=== PATIENT | female | born 1990 | race African-American/Black ===

== ENCOUNTER 2021-04-19 07:19 | Inpatient (IN) ==
[2021-04-19] MEDS: LACTATED RINGERS 1,000 ML IV SCH ×2 (08:35→15:13)
[2021-04-19] MEDS ORDERED: MEPERIDINE 50 MG/1 ML VIAL IV PRN (08:56)
[2021-04-19] MEDS ORDERED: OXYTOCIN/LR 20 UNIT/1,000 ML BAG IV SCH (09:00)
[2021-04-19 09:18] LABS: Basophils % 0.5 % (0.0-0.8); Eosinophils # 0.1 10*3/uL (0.0-0.87); Eosinophils % 0.6 % (0.00-10.9); Hematocrit 32.9 VOL% (35.7-47.0); Hemoglobin 10.2 GM/DL (12.0-16.0); Immature Granulocytes % 0.4 %; Immature Granulocytes Absolute 0.03 #; Lymphocytes # 1.9 10*3/uL (1.4-4.0); Lymphocytes % 22.4 % (21.3-54.2); Mean Corpuscular Volume 84.8 FL (87-102); Mean Platelet Volume 12.1 FL (9.6-12.0); Monocytes % 7.2 % (1.7-12.7); Neutrophils % 68.9 % (38.7-73.9); Platelet Count 266 T/CUMM (130-400); Red Blood Count 3.88 MC/CUMM (3.8-5.5); Red Cell Distribution Width 16.1 % (9.3-17.3); White Blood Count 8.3 T/CUMM (4-12)
[2021-04-19] MEDS: ONDANSETRON 4 MG/2 ML VIAL IV PRN ×2 (09:31→16:36)
[2021-04-19] MEDS ORDERED: CITRIC ACID/SODIUM CITRATE 30 ML UDCUP PO ONE (09:39)
[2021-04-19] MEDS ORDERED: FAMOTIDINE 20 MG/2 ML VIAL IV ONE (09:39)
[2021-04-19] MEDS ORDERED: LACTATED RINGERS 1,000 ML IV ONE (09:39)
[2021-04-19] MEDS ORDERED: ePHEDrine 50 MG/ML VIAL IV PRN (09:39)
[2021-04-19] MEDS ORDERED: NALOXONE 0.4 MG/ML VIAL IV PRN (09:39)
[2021-04-19] MEDS ORDERED: fentaNYL 2 MCG/ROPIV 0.2% EPID 100 ML EPIDURAL SCH (10:00)
[2021-04-19 11:19] LABS: RPR Confirm - Less than 1 yr REACTIVE (Nonreactive)
[2021-04-19 13:00] LABS: Bilirubin,Urine Negative (Negative); Blood, Urine Negative (Negative); Glucose,Urine (UA) Negative (Negative); Ketones,Urine 5 mg/dL (Negative); Nitrite,Urine Negative (Negative); Protein,Urine Negative; RBC,Urine <1 /HPF (0-4); Squamous Epithelial Cell,Urine Occasional /HPF (0-10); Urine Appearance CLEAR (Clear); Urine Color Straw (Yellow); Urine Specific Gravity 1.003 (1.001-1.035); Urine Urobilinogen < 2.0 EU/DL (0.2-1.0)
[2021-04-19] MEDS ORDERED: miSOPROStoL 200 MCG TABLET ONE (14:31)
[2021-04-19] MEDS ORDERED: METHYLERGONOVINE 0.2 MG/1 ML AMP ONE (14:32)
[2021-04-19] MEDS ORDERED: CARBOPROST TROMETHAMINE 250 MCG/ML AMP IM ONE (14:33)
[2021-04-19 16:06] LABS: Cord Venous Blood PO2 29.8 MMHG
[2021-04-19] MEDS ORDERED: MEASLES/MUMPS/RUBELLA VACCINE 0.5 ML VIAL SUBCUT ONE (16:34)
[2021-04-19] MEDS ORDERED: HYDROCORTISONE 2.5% RECTAL CREAM 30 GM TUBE TOP PRN (16:34)
[2021-04-19] MEDS ORDERED: LANOLIN 50% CREAM 0.3 OZ TUBE TOP PRN (16:34)
[2021-04-19] MEDS ORDERED: BISACODYL 10 MG SUPP RECTAL PRN (16:34)
[2021-04-19] MEDS ORDERED: BENZOCAINE 20%/MENTHOL 0.5% SPRAY 56 GM CAN TOP PRN (16:34)
[2021-04-19] MEDS ORDERED: ONDANSETRON 4 MG/2 ML VIAL IV PRN (16:34)
[2021-04-19] MEDS ORDERED: RHO(D) IMMUNE GLOBULIN 300 MCG SYRINGE IM ONE (16:34)
[2021-04-19] MEDS ORDERED: ACETAMINOPHEN 325 MG TABLET PO PRN (16:34)
[2021-04-19] MEDS ORDERED: OXYTOCIN/LR 20 UNIT/1,000 ML BAG IV ONE (16:34)
[2021-04-19] MEDS ORDERED: DIPH/TET/ACEL PERT BOOSTER VACCINE 0.5 ML VIAL IM ONE (16:34)
[2021-04-19] MEDS ORDERED: WITCH HAZEL PADS 100/JAR TOP PRN (16:34)
[2021-04-19] MEDS ORDERED: oxyCODONE/ACETAMINOPHEN 5-325 MG TABLET PO PRN (16:34)
[2021-04-19] MEDS: diphenhydrAMINE CAP 25 MG CAPSULE PO PRN (18:30)
[2021-04-19] MEDS: DOCUSATE SODIUM 100 MG CAPSULE PO SCH (22:00)
[2021-04-20] MEDS: IBUPROFEN 800 MG TABLET PO PRN ×2 (01:09→15:25)
[2021-04-20 05:55] LABS: Basophils % 0.5 % (0.0-0.8); Eosinophils # 0.1 10*3/uL (0.0-0.87); Eosinophils % 1.1 % (0.00-10.9); Hematocrit 28.8 VOL% (35.7-47.0); Hemoglobin 9.2 GM/DL (12.0-16.0); Immature Granulocytes % 0.3 %; Immature Granulocytes Absolute 0.02 #; Lymphocytes # 2.6 10*3/uL (1.4-4.0); Lymphocytes % 33.9 % (21.3-54.2); Mean Corpuscular HGB Conc 31.9 GM/DL (32-36); Mean Platelet Volume 11.5 FL (9.6-12.0); Monocytes % 7.3 % (1.7-12.7); Neutrophils % 56.9 % (38.7-73.9); Platelet Count 223 T/CUMM (130-400); Red Blood Count 3.39 MC/CUMM (3.8-5.5); Red Cell Distribution Width 15.7 % (9.3-17.3); White Blood Count 7.5 T/CUMM (4-12)
[2021-04-20 08:07] LABS: Hypochromasia 1+; Microcytosis 1+; Ovalocytes Few; Platelet Estimate Normal
[2021-04-20] MEDS: DOCUSATE SODIUM 100 MG CAPSULE PO SCH ×2 (09:15→21:47)
[2021-04-20] MEDS: MULTIVITAMIN (PRENATAL) TABLET PO SCH (09:15)
[2021-04-20] MEDS: oxyCODONE/ACETAMINOPHEN 5-325 MG TABLET PO PRN ×2 (15:25→21:47)
[2021-04-20] MEDS: diphenhydrAMINE CAP 25 MG CAPSULE PO PRN (18:10)
[2021-04-21] MEDS: DOCUSATE SODIUM 100 MG CAPSULE PO SCH (08:25)
[2021-04-21] MEDS: MULTIVITAMIN (PRENATAL) TABLET PO SCH (08:25)
[2021-04-21 09:57] VITALS: BP 123/68
== END 2021-04-21 10:45 | disposition home or self-care (01) | DRG 560 ==
LOC: N.LDOUT 07:19 → N.LD 07:21 → N.OB 17:49
PROVIDERS: ADMIT Specialist; ATTEND Specialist